=== PATIENT | female | born 1965 | race Caucasian/White ===

== ENCOUNTER 2017-05-07 20:47 | Emergency (ER) | payer OTHER ==
[~2017-05-07] VITALS: Ht 157.5 cm; Wt 66.7 kg
[~2017-05-07 20:47] MED LIST: FLAX SEED OIL1000 M2 PO; LIOTHYRONINE SO5 MC1 PO; MULTIVITAMINS1 EAC9 PO; SYNTHROID100 MCG PO; TURMERIC500 M2 PO
[2017-05-07 21:00] VITALS: BP 130/93
--- NOTE | 2017-05-07 21:04 | ED ANIMAL BITE/WOUND CHECK ---
History of Present Illness General Chief Complaint: Suture Removal/Wound Recheck Stated Complaint: SUTURE REMOVAL Source: patient Exam Limitations: no limitations Vital Signs & Intake/Output Vital Signs & Intake/Output Vital Signs Date Time Temp Pulse Resp B/P B/P Pulse O2 O2 Flow FiO2 Mean Ox Delivery Rate 05/07 2100 96.1 68 18 130/93 98 Room Air ED Intake and Output 05/08 0000 05/07 1200 Intake Total Output Total Balance Patient 147 lb Weight Weight Reported by Patient Measurement Method Allergies Coded Allergies: No Known Allergies (04/27/17) Reconcile Medications Flaxseed Oil (Flax Seed Oil) (Unknown Strength) CAPSULE (Unknown Dose) PO DAILY SUPPLEMENT (Reported) Levothyroxine Sodium (Synthroid) 100 MCG TABLET 1 TAB PO DAILY THYROID ( Reported) Liothyronine Sodium 5 MCG TABLET 1 TAB PO DAILY THYROID (Reported) Multiple Vitamin (Multivitamins) 1 EACH TABLET 1 TAB PO DAILY SUPPLEMENT ( Reported) Turmeric Root Extract (Turmeric) (Unknown Strength) CAPSULE (Unknown Dose) PO DAILY SUPPLEMENT (Reported) Triage Note: PT TO ER FOR SUTURE REMOVAL TO LEFT WRIST Triage Nurses Notes Reviewed? yes Onset: Abrupt Duration: day(s): Timing: recent history Injury Environment: home HPI: 51-year-old female comes into emergency room for suture removal to left wrist. Denies any redness or discharge fever chills. Denies any pain. Denies any other associated symptoms. (Melecio Chavez) Past History Travel History Traveled to [place] past 21 day No Medical History Any Pertinent Medical History? see below for history Neurological: NONE EENT: NONE Cardiovascular: NONE Respiratory: NONE Gastrointestinal: NONE Hepatic: NONE Renal: NONE Musculoskeletal: NONE Psychiatric: NONE Endocrine: hypothyroidism Blood Disorders: NONE Cancer(s): NONE TISSUE REWINDER/Reproductive: NONE Surgical History Surgical History: non-contributory Psychosocial History What is your primary language Dutch Tobacco Use: Never used Family History Hx Contributory? No (Melecio Chavez) Review of Systems Review of Systems Constitutional: Reports: no symptoms. EENTM: Reports: no symptoms. Respiratory: Reports: no symptoms. Cardiovascular: Reports: no symptoms. GI: Reports: no symptoms. Genitourinary: Reports: no symptoms. Musculoskeletal: Reports: no symptoms. Skin: Reports: see HPI. Neurological/Psychological: Reports: no symptoms. Hematologic/Endocrine: Reports: no symptoms. Immunologic/Allergic: Reports: no symptoms. All Other Systems: Reviewed and Negative (Melecio Chavez) Physical Exam Physical Exam General Appearance: well developed/nourished, mild distress Head: atraumatic Eyes: Bilateral: normal appearance. Ears, Nose, Throat: normal ENT inspection, hearing grossly normal Neck: normal inspection Respiratory: no respiratory distress Back: normal inspection Extremities: normal range of motion, Sutures to left wrist, no erythema, no warmth, no discharge Neurologic/Psych: awake, alert, oriented x 3, normal mood/affect Skin: intact, normal color, warm/dry (Melecio Chavez) Progress Differential Diagnosis: abscess, cellulitis, joint infection, tenosysnovitis Plan of Care: 05/08/2017 12:02:58 AM All sutures removed. Follow-up with vacuum spindle sander. Return if any other concerns. (Melecio Chavez) Departure Departure Disposition: HOME OR SELF CARE Condition: Stable Clinical Impression Primary Impression: Visit for suture removal Referrals: Dixon Adorno MD (PCP/Family) Additional Instructions: Please go over all results of today's visit with your primary care doctor. Contact your primary care doctor to let them know you were here in the emergency room. There may be nonspecific findings which may not be related to your visit today here in the emergency room but may require further evaluation and chronic monitoring by your primary care doctor. If you had a laceration today the chance of foreign body always remains. You should follow-up with your primary care doctor for recheck in 3-5 days for a wound check. If you had an x-ray done there is a chance that a fracture could have been missed on initial read and you should follow-up with your primary care doctor for repeat x-rays if symptoms persist. If your blood pressure was elevated here in the emergency room please have rechecked by [facility] primary care doctor within the next 48. If you were prescribed a narcotic here in the emergency room or any type of controlled substances you're not allowed to drive while taking this medication or operate any type of heavy machinery. Narcotics can make you feel lightheaded dizziness nausea and can cause constipation. You may need to lemon picker a stool softener. Thank you for choosing [facility] emergency room. Please return to the emergency room immediately if you have any other concerns worsening of symptoms. Departure Forms: Customer Survey General Discharge Information Release- Work (Melecio Chavez) PA/GEOINT ANALYST Co-Sign Statement Statement: ED Attending supervision documentation- I saw and evaluated the patient. I have also reviewed all the pertinent lab results and diagnostic results. I agree with the findings and the plan of care as documented in the PA's/GEOINT ANALYST's documentation. x I have reviewed the ED Record and agree with the PA's/GEOINT ANALYST's documentation. [] Additions or exceptions (if any) to the PAs/GEOINT ANALYST's note and plan are summarized below: [] (Jam TREJO,Tim)
== END 2017-05-07 21:36 ==
LOC: ERH 20:47
DX: S61.512A Laceration without foreign body of left wrist, initial encounter (principal); X58.XXXA Exposure to other specified factors, initial encounter; Y92.9 Unspecified place or not applicable; Y93.9 Activity, unspecified
CPT/HCPCS: 99281